=== PATIENT | female | born 1965 ===

== ENCOUNTER 2025-01-07 03:19 | Inpatient (IN) ==
[2025-01-07] MEDS ORDERED: IOPAMIDOL 100 ML BOTTLE IV ONE (03:20)
[2025-01-07] MEDS: ONDANSETRON 4 MG/2 ML VIAL IV ONE (04:01)
[2025-01-07] MEDS: 0.9 % SODIUM CHLORIDE 1,000 ML IV ONE ×3 (04:01→07:48)
[2025-01-07 04:14] LABS: Basophils # (Auto) 0 K/mcL (0.00-0.30); Basophils % (Auto) 0 % (0.0-2.0); Eosinophils # (Auto) 0.01 K/mcL (0.00-0.70); Eosinophils % (Auto) 0.1 % (0.0-7.0); Hematocrit 32.5 % (34.1-44.9); Hemoglobin 11.5 g/dL (11.2-15.7); Lymphocytes # (Auto) 0.70 K/mcL (1.50-4.80); Lymphocytes % (Auto) 10.4 % (15.5-49.0); Mean Corpuscular HGB Conc 35.4 g/dL (31.0-36.0); Monocytes # (Auto) 0.10 K/mcL (0.10-0.90); Monocytes % (Auto) 1.5 % (1.0-12.0); Neutrophils % (Auto) 87.7 % (38.0-78.0); Platelet Count 274 K/mcL (140-440); RBC 3.32 M/mcL (3.59-5.38); WBC 6.7 K/mcL (4.5-11.0)
[2025-01-07 04:36] LABS: Thyroid Stimulating Hormone 1.23 uIU/mL (0.27-5.01)
[2025-01-07 04:41] LABS: ALT/SGPT 19 U/L (<40); AST/SGOT 64 U/L (<32); Albumin 2.1 gm/dL (3.2-5.2); Albumin/Globulin Ratio 0.5 (1.0-2.3); Alkaline Phosphatase 223 U/L (39-117); Anion Gap 19.0 (8.0-16.0); Bilirubin,Total 4.3 mg/dL (0.1-1.0); Blood Urea Nitrogen 12 mg/dL (6-20); Calcium 7.1 mg/dL (8.6-10.4); Carbon Dioxide 23 mmol/L (22-30); Chloride 83 mmol/L (96-108); Globulin 4.6 gm/dL (2.2-3.7); Glucose 103 mg/dL (70-105); Potassium 2.7 mmol/L (3.3-5.1); Sodium 125 mmol/L (133-145)
[2025-01-07 05:28] LABS: Alcohol,Blood 0.13 gm/dL (<0.010); Creatine Kinase 29 U/L (24-170)
[2025-01-07] MEDS: cefTRIAXone 2 GM in DEXTROSE 5% IN WATER 50 ML IV ONE (05:28)
[2025-01-07] MEDS: POTASSIUM CHLORIDE 20 MEQ in DEXTROSE 5% IN WATER 250 ML IV ONE (05:28)
[2025-01-07 06:00] LABS: Bacteria,Urine MOD /hpf (0); Bilirubin,Urine Negative (Negative); Color,Urine Yellow; Glucose,Urine (UA) Negative (Negative); Ketones,Urine Negative (Negative); Leukocyte Esterase,Urine 500 /uL (Negative); Mucus,Urine FEW /hpf; PH,Urine 7.0 (5.0-9.0); Protein,Urine 100 mg/dL (Negative); Specific Gravity,Urine 1.055 (1.000-1.035); Urobilinogen,Urine 4.0 mg/dL
[2025-01-07 10:38] LABS: RBC Morphology NORMAL (Normal)
[2025-01-07] MEDS ORDERED: POTASSIUM CHLORIDE 20 MEQ TABLET PO PRN (10:38)
[2025-01-07] MEDS ORDERED: SENNOSIDES 1 TABLET PO PRN (10:38)
[2025-01-07] MEDS ORDERED: IPRATROPIUM/ALBUTEROL 3 ML AMPUL.NEB NEB PRN (10:38)
[2025-01-07] MEDS ORDERED: METOCLOPRAMIDE 10 MG/2 ML VIAL IV PRN (10:38)
[2025-01-07] MEDS ORDERED: POLYETHYLENE GLYCOL 3350 17 GM PACKET PO PRN (10:38)
[2025-01-07] MEDS ORDERED: DIAZEPAM 10 MG/2 ML SYRINGE IV PRN (10:38)
[2025-01-07] MEDS ORDERED: POTASSIUM CHLORIDE 40 MEQ in DEXTROSE 5% IN WATER 500 ML IV PRN (10:38)
[2025-01-07] MEDS: DEXTROSE 5%-NS W/20MEQ KCL 1,000 ML IV ONE (10:58)
[2025-01-07] MEDS: MULTIVIT,THER IRON,CA,FA & MIN 1 TABLET PO SCH (11:05)
[2025-01-07] MEDS: FOLIC ACID 1 MG TABLET PO SCH (11:05)
[2025-01-07] MEDS: ACETAMINOPHEN 325 MG TABLET PO PRN (11:06)
[2025-01-07] MEDS: THIAMINE 100 MG in 0.9 % SODIUM CHLORIDE 50 ML IV SCH (11:44)
[2025-01-07] MEDS: AZITHROMYCIN 500 MG in DEXTROSE 5% IN WATER 250 ML IV SCH (11:44)
[2025-01-07 12:11] LABS: Phosphorous 2.3 mg/dL (2.5-4.5); Uric Acid 3.8 mg/dL (2.5-8.0)
[2025-01-07 12:13] LABS: Anion Gap 19.0 (8.0-16.0); Blood Urea Nitrogen 10 mg/dL (6-20); Calcium 6.1 mg/dL (8.6-10.4); Carbon Dioxide 18 mmol/L (22-30); Chloride 94 mmol/L (96-108); Glucose 76 mg/dL (70-105); Potassium 3.2 mmol/L (3.3-5.1); Sodium 131 mmol/L (133-145)
[2025-01-07] MEDS: CALCIUM GLUCONATE 9.3 MEQ in DEXTROSE 5% IN WATER 100 ML IV ONE (13:50)
[2025-01-07] MEDS: PIPERACILLIN SODIUM/TAZOBACTAM 3.375 GM in DEXTROSE 5% IN WATER 100 ML IV SCH (16:13)
[2025-01-07] MEDS: LIDOCAINE 5% OINT TUBE 35GM TOPICAL PRN (17:53)
[2025-01-07] MEDS: CALCIUM GLUCONATE 4.65 MEQ/10 ML VIAL IV ONE (19:09)
[2025-01-07] MEDS: DOCUSATE SODIUM 100 MG CAPSULE PO SCH (19:20)
[2025-01-07] MEDS: MAGNESIUM SULFATE 2 GM/50 ML BAG IV PRN (19:20)
[2025-01-08 06:39] LABS: Basophils # (Auto) 0.01 K/mcL (0.00-0.30); Basophils % (Auto) 0.1 % (0.0-2.0); Eosinophils # (Auto) 0.01 K/mcL (0.00-0.70); Eosinophils % (Auto) 0.1 % (0.0-7.0); Hematocrit 25.8 % (34.1-44.9); Hemoglobin 8.2 g/dL (11.2-15.7); Lymphocytes # (Auto) 1.24 K/mcL (1.50-4.80); Lymphocytes % (Auto) 12.1 % (15.5-49.0); Mean Corpuscular HGB Conc 31.8 g/dL (31.0-36.0); Monocytes # (Auto) 0.42 K/mcL (0.10-0.90); Monocytes % (Auto) 4.1 % (1.0-12.0); Neutrophils % (Auto) 83.1 % (38.0-78.0); Platelet Count 148 K/mcL (140-440); RBC 2.33 M/mcL (3.59-5.38); WBC 10.3 K/mcL (4.5-11.0)
[2025-01-08] MEDS: LACTATED RINGERS 500 ML IV ONE (08:09)
[2025-01-08 08:58] LABS: ALT/SGPT 17 U/L (<40); AST/SGOT 56 U/L (<32); Albumin 1.8 gm/dL (3.2-5.2); Albumin/Globulin Ratio 0.5 (1.0-2.3); Alkaline Phosphatase 169 U/L (39-117); Anion Gap 11.0 (8.0-16.0); Bilirubin,Direct 2.3 mg/dL (<0.3); Bilirubin,Total 3.2 mg/dL (0.1-1.0); Blood Urea Nitrogen 8 mg/dL (6-20); Calcium 6.8 mg/dL (8.6-10.4); Carbon Dioxide 23 mmol/L (22-30); Chloride 93 mmol/L (96-108); Globulin 3.3 gm/dL (2.2-3.7); Glucose 80 mg/dL (70-105); Phosphorous 2.0 mg/dL (2.5-4.5); Potassium 2.7 mmol/L (3.3-5.1); Sodium 127 mmol/L (133-145); Triglycerides 101 mg/dL (<150); Uric Acid 2.6 mg/dL (2.5-8.0)
[2025-01-08] MEDS ORDERED: cefTRIAXone 1 GM VIAL IV SCH (09:00)
[2025-01-08] MEDS: POTASSIUM CHLORIDE 20 MEQ TABLET PO PRN (09:10)
[2025-01-08] MEDS: LACTATED RINGERS 1,000 ML IV ONE (09:10)
[2025-01-08] MEDS: ENOXAPARIN 40 MG/0.4 ML SYRINGE SQ SCH (09:11)
[2025-01-08] MEDS: SODIUM BICARBONATE 650 MG TABLET PO SCH (09:13)
[2025-01-08] MEDS: ONDANSETRON 4 MG/2 ML VIAL IV PRN (09:53)
[2025-01-08] MEDS: DEXTROSE 5%-1/2NS W/10MEQ KCL 1,000 ML IV SCH (10:49)
[2025-01-08] MEDS: PANTOPRAZOLE 40 MG VIAL IV SCH (11:01)
[2025-01-08] MEDS: CALCIUM GLUCONATE 9.3 MEQ in DEXTROSE 5% IN WATER 100 ML IV SCH (11:13)
[2025-01-08] MEDS: POTASSIUM CHLORIDE 10 MEQ/100 ML BAG IV SCH (11:13)
[2025-01-08] MEDS: PANTOPRAZOLE 80 MG in 0.9 % SODIUM CHLORIDE 100 ML IV SCH (11:56)
[2025-01-08] MEDS ORDERED: ROCURONIUM 10 MG/ML ML IV ONE (15:05)
[2025-01-08] MEDS ORDERED: LIDOCAINE 2% PF 5 ML VIAL ONE (15:05)
[2025-01-08] MEDS ORDERED: fentaNYL 100 MCG/2 ML VIAL ONE (15:05)
[2025-01-08] MEDS ORDERED: PROPOFOL 200 MG/20 ML VIAL IV ONE (15:06)
[2025-01-08] MEDS ORDERED: SUGAMMADEX SODIUM 200 MG/2 ML VIAL IV ONE ×2 (15:06→15:46)
[2025-01-08] MEDS ORDERED: ONDANSETRON 4 MG/2 ML VIAL ONE (15:08)
[2025-01-08] MEDS ORDERED: GLYCOPYRROLATE 0.2 MG/ML VIAL IV ONE (15:08)
[2025-01-08] MEDS ORDERED: PHENYLephrine 1 MG/10 ML SYRINGE (ANEST) ONE (15:09)
[2025-01-08] MEDS: EPINEPHrine 1 MG/10 ML (1:10,000) SYRINGE IV SCH (15:45)
[2025-01-08 15:50] LABS: Hematocrit 33.4 % (34.1-44.9); Hemoglobin 10.7 g/dL (11.2-15.7)
[2025-01-08] MEDS: 0.9 % SODIUM CHLORIDE 1,000 ML IV ONE (17:17)
[2025-01-08] MEDS: SUCRALFATE 1 GM/10 ML ORAL.SUSP PO SCH (17:17)
[2025-01-08] MEDS: LACTATED RINGERS 250 ML IV ONE (19:20)
[2025-01-08] MEDS ORDERED: NOREPINEPHRINE 250 ML IV PRN (19:30)
[2025-01-08] MEDS: PNEUMOCOCCAL 23-VAL P-SAC VAC 0.5 ML SYRINGE IM ONE (19:36)
[2025-01-08] MEDS: CALCIUM GLUCONATE 4.65 MEQ/10 ML VIAL IV ONE (19:39)
[2025-01-08] MEDS: 0.9 % SODIUM CHLORIDE 250 ML IV SCH ×2 (19:40→20:04)
[2025-01-08] MEDS: PHOSPHORUS 250 MG TABLET PO SCH (20:03)
[2025-01-08] MEDS: MELATONIN 3 MG TABLET PO SCH (20:03)
[2025-01-08] MEDS: NEUTRA PHOS 1 PACKET PO SCH (20:03)
[2025-01-08] MEDS: ALBUMIN HUMAN 12.5 GM/50 ML VIAL IV SCH (20:43)
[2025-01-09 08:55] LABS: Basophils # (Auto) 0 K/mcL (0.00-0.30); Basophils % (Auto) 0 % (0.0-2.0); Eosinophils # (Auto) 0 K/mcL (0.00-0.70); Eosinophils % (Auto) 0 % (0.0-7.0); Hematocrit 26.3 % (34.1-44.9); Hemoglobin 9.0 g/dL (11.2-15.7); Lymphocytes # (Auto) 0.99 K/mcL (1.50-4.80); Lymphocytes % (Auto) 11.3 % (15.5-49.0); Mean Corpuscular HGB Conc 34.2 g/dL (31.0-36.0); Monocytes # (Auto) 0.35 K/mcL (0.10-0.90); Monocytes % (Auto) 4.0 % (1.0-12.0); Neutrophils % (Auto) 83.9 % (38.0-78.0); Platelet Count 100 K/mcL (140-440); RBC 2.78 M/mcL (3.59-5.38); WBC 8.8 K/mcL (4.5-11.0)
[2025-01-09] MEDS ORDERED: 0.9 % SODIUM CHLORIDE 10 ML SYRINGE IV PRN (09:00)
[2025-01-09 09:10] LABS: ALT/SGPT 15 U/L (<40); AST/SGOT 48 U/L (<32); Albumin 1.7 gm/dL (3.2-5.2); Albumin/Globulin Ratio 0.6 (1.0-2.3); Alkaline Phosphatase 126 U/L (39-117); Anion Gap 10.0 (8.0-16.0); Bilirubin,Direct 3.2 mg/dL (<0.3); Bilirubin,Total 4.7 mg/dL (0.1-1.0); Blood Urea Nitrogen 6 mg/dL (6-20); Calcium 6.8 mg/dL (8.6-10.4); Carbon Dioxide 20 mmol/L (22-30); Chloride 100 mmol/L (96-108); Globulin 2.7 gm/dL (2.2-3.7); Glucose 75 mg/dL (70-105); Phosphorous 2.2 mg/dL (2.5-4.5); Potassium 3.6 mmol/L (3.3-5.1); Sodium 130 mmol/L (133-145); Triglycerides 77 mg/dL (<150); Uric Acid 1.6 mg/dL (2.5-8.0)
[2025-01-09 09:12] LABS: INR 1.4 (0.9-1.1); Prothrombin Time 18.2 sec (11.9-14.5)
[2025-01-09] MEDS: CALCIUM GLUCONATE 9.3 MEQ in DEXTROSE 5% IN WATER 50 ML IV ONE (10:48)
[2025-01-09] MEDS: CALCIUM GLUCONATE 4.65 MEQ/10 ML VIAL IV ONE (10:54)
[2025-01-09] MEDS: SODIUM PHOSPHATE 30 MMOL in DEXTROSE 5% IN WATER 500 ML IV ONE (12:06)
[2025-01-09] MEDS: 0.9 % SODIUM CHLORIDE 10 ML SYRINGE IV SCH (12:07)
[2025-01-09] MEDS: HEPARIN 10 UNITS/ML 5ML FLUSH IV SCH ×2 (12:07)
[2025-01-09] MEDS ORDERED: LIDOCAINE 1% 10 ML VIAL SQ ONE (12:08)
[2025-01-10 06:26] LABS: Basophils # (Auto) 0.01 K/mcL (0.00-0.30); Basophils % (Auto) 0.1 % (0.0-2.0); Eosinophils # (Auto) 0 K/mcL (0.00-0.70); Eosinophils % (Auto) 0 % (0.0-7.0); Hematocrit 24.7 % (34.1-44.9); Hemoglobin 8.5 g/dL (11.2-15.7); Lymphocytes # (Auto) 1.04 K/mcL (1.50-4.80); Lymphocytes % (Auto) 13.1 % (15.5-49.0); Mean Corpuscular HGB Conc 34.4 g/dL (31.0-36.0); Monocytes # (Auto) 0.57 K/mcL (0.10-0.90); Monocytes % (Auto) 7.2 % (1.0-12.0); Neutrophils % (Auto) 78.0 % (38.0-78.0); Platelet Count 118 K/mcL (140-440); RBC 2.60 M/mcL (3.59-5.38); WBC 8.0 K/mcL (4.5-11.0)
[2025-01-10 07:05] LABS: ALT/SGPT 16 U/L (<40); AST/SGOT 53 U/L (<32); Albumin 1.4 gm/dL (3.2-5.2); Albumin/Globulin Ratio 0.5 (1.0-2.3); Alkaline Phosphatase 130 U/L (39-117); Anion Gap 11.0 (8.0-16.0); Bilirubin,Direct 2.5 mg/dL (<0.3); Bilirubin,Total 3.3 mg/dL (0.1-1.0); Blood Urea Nitrogen 4 mg/dL (6-20); Calcium 6.6 mg/dL (8.6-10.4); Carbon Dioxide 20 mmol/L (22-30); Chloride 102 mmol/L (96-108); Globulin 2.7 gm/dL (2.2-3.7); Glucose 78 mg/dL (70-105); Phosphorous 3.9 mg/dL (2.5-4.5); Potassium 2.3 mmol/L (3.3-5.1); Sodium 133 mmol/L (133-145); Triglycerides 72 mg/dL (<150); Uric Acid 1.5 mg/dL (2.5-8.0)
[2025-01-10] MEDS: POTASSIUM CHLORIDE 20 MEQ TABLET PO ONE ×2 (07:53→16:46)
[2025-01-10 07:54] LABS: Potassium 2.3 mmol/L (3.3-5.1)
[2025-01-10] MEDS: POTASSIUM CHLORIDE 40 MEQ in DEXTROSE 5% IN WATER 500 ML IV ONE (08:17)
[2025-01-10] MEDS: MAGNESIUM SULFATE 2 GM/50 ML BAG IV ONE (09:40)
[2025-01-10] MEDS: LEVOFLOXACIN 750 MG/150 ML BAG IV SCH (09:40)
[2025-01-10 15:21] LABS: Potassium 3.0 mmol/L (3.3-5.1)
[2025-01-10] MEDS: POTASSIUM CHLORIDE 20 MEQ in DEXTROSE 5% IN WATER 250 ML IV ONE (16:46)
[2025-01-10 20:58] LABS: Hematocrit 23.2 % (34.1-44.9); Hemoglobin 8.0 g/dL (11.2-15.7)
[2025-01-10 21:36] LABS: Potassium 3.9 mmol/L (3.3-5.1)
[2025-01-11 06:45] LABS: ALT/SGPT 20 U/L (<40); AST/SGOT 72 U/L (<32); Albumin 1.4 gm/dL (3.2-5.2); Albumin/Globulin Ratio 0.5 (1.0-2.3); Alkaline Phosphatase 153 U/L (39-117); Anion Gap 7.0 (8.0-16.0); Bilirubin,Direct 2.1 mg/dL (<0.3); Bilirubin,Total 2.8 mg/dL (0.1-1.0); Blood Urea Nitrogen 3 mg/dL (6-20); Calcium 6.6 mg/dL (8.6-10.4); Carbon Dioxide 20 mmol/L (22-30); Chloride 103 mmol/L (96-108); Globulin 2.9 gm/dL (2.2-3.7); Glucose 90 mg/dL (70-105); Phosphorous 1.8 mg/dL (2.5-4.5); Potassium 3.6 mmol/L (3.3-5.1); Sodium 130 mmol/L (133-145); Triglycerides 75 mg/dL (<150); Uric Acid 1.7 mg/dL (2.5-8.0)
[2025-01-11 07:13] LABS: Basophils # (Auto) 0.01 K/mcL (0.00-0.30); Basophils % (Auto) 0.1 % (0.0-2.0); Eosinophils # (Auto) 0.02 K/mcL (0.00-0.70); Eosinophils % (Auto) 0.2 % (0.0-7.0); Hematocrit 22.1 % (34.1-44.9); Hemoglobin 7.9 g/dL (11.2-15.7); Lymphocytes # (Auto) 1.03 K/mcL (1.50-4.80); Lymphocytes % (Auto) 12.5 % (15.5-49.0); Mean Corpuscular HGB Conc 35.7 g/dL (31.0-36.0); Monocytes # (Auto) 0.58 K/mcL (0.10-0.90); Monocytes % (Auto) 7.0 % (1.0-12.0); Neutrophils % (Auto) 77.6 % (38.0-78.0); Platelet Count 108 K/mcL (140-440); RBC 2.37 M/mcL (3.59-5.38); WBC 8.2 K/mcL (4.5-11.0)
[2025-01-11] MEDS ORDERED: 0.9 % SODIUM CHLORIDE 1,000 ML IV SCH (08:45)
[2025-01-11] MEDS: POTASSIUM PHOSPHATE 40 MEQ in DEXTROSE 5% IN WATER 500 ML IV ONE (08:47)
[2025-01-11] MEDS: 0.9 % SODIUM CHLORIDE 250 ML IV SCH (08:50)
[2025-01-11] MEDS: CALCIUM GLUCONATE 9.3 MEQ in DEXTROSE 5% IN WATER 100 ML IV SCH (11:19)
== END 2025-01-11 11:35 | disposition other institution (70) | DRG 380 ==
LOC: ED 03:19 → ICU 10:15
PROVIDERS: ADMIT Internal Medicine; ATTEND Student in an Organized Health Care Education/Training Program